=== PATIENT | male | born 1950 | race Caucasian/White ===

== ENCOUNTER 2022-02-09 13:07 | Emergency (ER) | payer MEDICARE ==
[~2022-02-09] VITALS: Ht 175.3 cm; Wt 79.4 kg
[2022-02-09] MEDS ORDERED: ATROPINE SULFATE 1 MG/ML VIAL IV ONE ×5 (13:30→14:30)
[2022-02-09 13:31] LABS: BASOPHILS # (AUTO) 0.1 (0.0-0.1); BASOPHILS % 0.8 % (0.0-1.0); EOSINOPHILS # (AUTO) 0.2 (0.0-0.4); EOSINOPHILS % 3.3 % (0.0-6.0); HEMATOCRIT 39.7 % (38.2-49.6); HEMOGLOBIN 13.3 g/dL (14.0-18.0); LYMPHOCYTES % 32.5 % (18.0-39.1); MEAN CORPUSCULAR HEMOGLOBIN 33.8 pg (28-32); MEAN CORPUSCULAR HGB CONC 33.5 g/dL (31-35); MONOCYTES # (AUTO) 0.4 (0.2-0.8); NEUTROPHILS # (AUTO) 3.5 (2.1-6.9); NEUTROPHILS % 57.2 % (38.7-80.0); PLATELET COUNT 202 x10e3/uL (140-360); RED BLOOD COUNT 3.93 x10e6/uL (4.3-5.7); RED CELL DISTRIBUTION WIDTH 13.9 % (11.7-14.4)
[2022-02-09 13:41] LABS: INR 2.11; PROTHROMBIN TIME 25.3 seconds (11.9-14.5)
[2022-02-09] MEDS ORDERED: ATROPINE SULFATE 0.1 MG/ML 10ML SYR ONE (13:44)
[2022-02-09 13:51] LABS: ALBUMIN 3.6 g/dL (3.5-5.0); ALBUMIN/GLOBULIN RATIO 1.2 (0.8-2.0); CALCIUM 8.8 mg/dL (8.4-10.2); CREATININE, SERUM 2.5 mg/dL (0.72-1.25)
[2022-02-09] MEDS ORDERED: ZETIA10 MG PO (14:03)
[2022-02-09] MEDS ORDERED: LEVOTHYROXINE75 MCG PO (14:03)
[2022-02-09] MEDS ORDERED: WARFARIN SODIUM5 MG PO (14:03)
[2022-02-09] MEDS ORDERED: VITAMIN D3 COM1 EACH PO (14:04)
[2022-02-09] MEDS ORDERED: MIDAZOLAM HCL 2 MG/2 ML VIAL IV STA ×2 (14:17→15:18)
[2022-02-09] MEDS ORDERED: ALLOPURINOL100 MG PO (14:25)
[2022-02-09 14:47] LABS: FREE T4 (FREE THYROXINE) 1.01 ng/dL (0.8-1.8); THYROID STIMULATING HORMONE 1.527 uIU/mL (0.350-4.940)
[2022-02-09] MEDS ORDERED: FENTANYL CITRATE/PF 100MCG/2 ML INJ IV ONE (17:30)
== END 2022-02-09 17:00 | disposition other institution (70) ==
LOC: ER 13:19
DX: R00.1 Bradycardia, unspecified (principal); R20.0 Anesthesia of skin; R42 Dizziness and giddiness; R94.31 Abnormal electrocardiogram [ECG] [EKG]; E78.5 Hyperlipidemia, unspecified; Z86.718 Personal history of other venous thrombosis and embolism; Z20.822 Contact with and (suspected) exposure to COVID-19
CPT/HCPCS: 36415; 70450; 71045; 80053; 82550; 82553; 84439; 84443; 84484; 85025; 85610; 85730; 93005; 99284; J0461; J2250; U0002